=== PATIENT | male | born 2000 | race Caucasian/White ===

== ENCOUNTER 2021-12-17 14:54 | Emergency (ER) | payer OTHER, BC ==
[2021-12-17] MEDS ORDERED: BUPIVACAINE 0.25% PF 30 ML VIAL SUBQ STA (15:13)
[2021-12-17] MEDS ORDERED: KETOROLAC 15 MG/ML VIAL IVP STA (15:14)
[2021-12-17] MEDS ORDERED: ceFAZolin 1 GM in SODIUM CHLORIDE 0.9% MINIBAG 100 ML IV STA (15:14)
[2021-12-17] MEDS ORDERED: SODIUM CHLORIDE 0.9% 1,000 ML IV STA (15:15)
[2021-12-17] MEDS ORDERED: BUPIVACAINE 0.5% PF 10 ML VIAL ONE (15:22)
[2021-12-17] MEDS ORDERED: BUPIVACAINE 0.5% PF 10 ML VIAL SUBQ ONE (15:29)
--- NOTE | 2021-12-17 15:57 | XRAY Report ---
PROCEDURE: Finger(s) LT INDICATIONS: finger avulsive injury TECHNIQUE: AP hand, 3 views of the third finger(s) acquired. COMPARISON: None FINDINGS: Bones: There is partial amputation of the distal tuft of the third digit. No suspicious bony lesions. Soft tissues: No suspicious soft tissue calcifications. IMPRESSION: Amputation of the distal most aspect of the third digit tuft. Reviewed by: Veronica Gonzalez MD on 12/17/2021 3:56 PM PDT Approved by: Veronica Gonzalez MD on 12/17/2021 3:56 PM PDT Station ID: [id number]
--- NOTE | 2021-12-17 16:59 | ED Physician Documentation ---
PD HPI UPPER EXT INJURY - Stated complaint Stated Complaint: LT FINGER LAC - Chief complaint Chief Complaint: Trauma Ext - History obtained from History obtained from: Patient - History of Present Illness Location: Left, Finger (middle finger tip) Type of injury: Blunt / blow (working near small excavator and the bucket struck the tip of his middle finger, causing avulsion/lac of the skin at distal phalanx radial side.) Where injury occurred: Work Timing - onset: Today Timing - details: Abrupt onset, Still present Worsened by: Moving, Palpating Associated symptoms: No: Weakness, Numbness Similar symptoms before: Has not had sx before Review of Systems Skin: reports: Laceration (s) Neurologic: denies: Focal weakness, Numbness PD PAST MEDICAL HISTORY - Past Medical History Past Medical History: Yes Cardiovascular: None Respiratory: None Neuro: None Endocrine/Autoimmune: None GI: None : None HEENT: None Psych: Anxiety Musculoskeletal: None Derm: None - Past Surgical History Past Surgical History: No - Present Medications Home Medications: Ambulatory Orders Medication Instructions Recorded Confirmed Naproxen 500 mg PO BID #20 tab 12/17/21 Oxycodone HCl/Acetaminophen 1 each PO Q6H PRN #20 tablet 12/17/21 [Percocet 5-325 mg Tablet] Sertraline HCl 100 mg PO DAILY 12/17/21 12/17/21 cephALEXin [Keflex] 500 mg PO TID #20 cap 12/17/21 - Allergies Allergies/Adverse Reactions: Allergies Allergy/AdvReac Type Severity Reaction Status Date / Time No Known Drug Allergies Allergy Verified 12/17/21 15:13 - Social History Does the pt smoke?: No Smoking Status: Never smoker Does the pt drink ETOH?: No Does the pt have substance abuse?: No - Immunizations Immunizations are current?: Yes PD ED PE NORMAL - Vitals Vital signs reviewed: Yes - General General: Alert and oriented X 3, Well developed/nourished, Other (appears in pain due to finger injury. Finger bandaged. Light bleeding through bandage. ) - Derm Derm: Normal color, Warm and dry - Extremities Extremities: Other (left middle finger with avulsion torn at distal phalanx with radial side missing to just distal to DIP. Ulnar side with intact tissue almost to tip of where nail would be. The bone otherwise is exposed out from tissue and surface appears scoured. No overt dirt. He can flex the stub of it at the DIP.) - Neuro Neuro: Alert and oriented X 3, No motor deficit, No sensory deficit Results - Vitals Vitals: Vital Signs - 24 hr 12/17/21 12/17/21 15:08 17:36 Temperature 36.4 C L 37.3 C Heart Rate 64 92 Respiratory 16 16 Rate Blood Pressure 138/75 H 143/60 H O2 Saturation 99 98 Oxygen O2 Source Room air - Rads (name of study) left finger Radiology: Prelim report reviewed (avulsion of soft tissue and distal phalanx bone segment. Not involving DIP joint. ), See rad report Procedures - Laceration (location) left middle finger tip Length in cm: 3 Wound type: Irregular, Into subcut fat (exposing the bone), Clean Neurovascular status: Sensory intact, Motor intact Tendon involvement: Tendon intact Anesthesia: Marcaine 0.5% (digital block) Wound preparation: Irrigated copiously NS, Wound explored, To the base Deep layer closure: Vicryl (single suture to ligate distal digital arteriole that started bleeding.) Skin layer closure: Nylon, Interrupted (bone ronjour of the exposed distal phalanx and freed up the tissue remaining on ulnar side. Folded it over to radial side and sutured around the tip. There was some subcut tissue still exposed without dermal overcoat on radial side, but bone completely covered.), Size #-0 - enter number (4) Other: Patient tolerated well, No complications, Neurovascular intact, Dressing applied, Tetanus UTD PD MEDICAL DECISION MAKING - ED course Complexity details: reviewed results, d/w insolvency consultant (plastic surgeon in [place] (pt seen prior for hand injury and pt lives in [place]). Discussed exam. He directed to roungour back the bone and oversew skin to maximize remaining length. To be seen by them in a week. ) Departure - Departure Disposition: 01 Home, Self Care Clinical Impression: Avulsion, finger tip Condition: Stable Record reviewed to determine appropriate education?: Yes Instructions: ED Laceration Hand Follow-Up: Reji Villanueva II, MD [Physician No Access] - Prescriptions: cephALEXin [Keflex] 500 mg PO TID #20 cap Naproxen 500 mg PO BID #20 tab Oxycodone HCl/Acetaminophen [Percocet 5-325 mg Tablet] 1 each PO Q6H PRN #20 tablet PRN Reason: pain Comments: Leave the initial dressing on for 1 to 2 days. Then remove and clean the wound gently with soap and water and apply some ointment and redress. Antibiotic cephalexin as directed for the next week. Use naproxen anti- inflammatory twice daily as directed. Take it with food. To that add Tylenol every 4-6 hours if needed for pain or oxycodone/acetaminophen if needed for worse pain. I transmitted your prescriptions to the [facility] on [place]. I talked with Dr. Smith who is with the plastic surgery group. Use before. He said to call their office tomorrow for an appointment to make a follow-up in about a week. Recheck sooner if any signs of infection. I tried to maintain the length as best I could and still approximate the tissue. It may need further revising subsequently by the hand specialist. I am prescribing a short course of narcotic pain medication for you. These are potentially dangerous and addictive medications that should be used carefully. These medications may constipate you. Take an [id number] stool softener such as docusate twice daily with plenty of water while taking these medications. If you go 24 hours without a bowel movement, take [id number] MiraLAX, per package instructions. Do not drink or drive while taking these medications. If you received narcotic or sedating medications while in the emergency department do not drive for 24 hours. Store this medication in a safe, secure place and out of reach of children. It is a violation of federal law to give or sell this medication to another person or to use in a manner other than prescribed. The ED will not refill narcotic prescriptions, including prescriptions lost or stolen. You can dispose of unwanted medications at the [facility]'s office or at several pharmacies such as [facility]. Discharge Date/Time: 12/17/21 17:37
[2021-12-17 17:37] VITALS: BP 143/60
== END 2021-12-17 17:37 | disposition home or self-care (01) ==
LOC: ED 14:54
DX: S48.912A Complete traumatic amputation of left shoulder and upper arm, level unspecified, initial encounter (principal); W31.89XA Contact with other specified machinery, initial encounter; Y93.89 Activity, other specified; Y99.0 Civilian activity done for income or pay
CPT/HCPCS: 13132

== ENCOUNTER 2021-12-21 10:02 | Emergency (ER) | payer BC ==
[2021-12-21 10:13] VITALS: BP 127/67
--- NOTE | 2021-12-21 10:15 | ED Physician Documentation ---
PD HPI WOUND RECHECK - Stated complaint Stated Complaint: DRESSING R HAND FINGER - Chief complaint Chief Complaint: Wound - Histroy obtained from History obtained from: Patient - History of Present Illness Location: Right Hand (had crush avulsion of end of middle finger with repair and closure in ER. Was to see plastic surgeon in follow up but the office personnel said he needed referral to be seen. I will call office again today. I had talked with surgeon directly last week. Wound is doing okay without infection.) Timing - onset: How many days ago (6) Associated symptoms: No: Redness, Swelling, Drainage Similar symptoms before: Other (had seen Plastic Surgeon in [place] for prior hand injury within past couple of years.) Recently seen: Emergency Dept. No: Clinic Review of Systems Constitutional: denies: Fever, Chills GI: denies: Nausea, Vomiting : denies: Hematuria, Discharge PD PAST MEDICAL HISTORY - Past Medical History Cardiovascular: None Respiratory: None Neuro: None Endocrine/Autoimmune: None GI: None : None HEENT: None Psych: Anxiety Musculoskeletal: None Derm: None - Past Surgical History Past Surgical History: No - Present Medications Home Medications: Ambulatory Orders Medication Instructions Recorded Confirmed Naproxen 500 mg PO BID #20 tab 12/17/21 Oxycodone HCl/Acetaminophen 1 each PO Q6H PRN #20 tablet 12/17/21 [Percocet 5-325 mg Tablet] Sertraline HCl 100 mg PO DAILY 12/17/21 12/17/21 cephALEXin [Keflex] 500 mg PO TID #20 cap 12/17/21 - Allergies Allergies/Adverse Reactions: Allergies Allergy/AdvReac Type Severity Reaction Status Date / Time No Known Drug Allergies Allergy Verified 12/21/21 10:13 - Social History Does the pt smoke?: No Smoking Status: Never smoker Does the pt drink ETOH?: No Does the pt have substance abuse?: No - Immunizations Immunizations are current?: Yes PD ED PE NORMAL - Vitals Vital signs reviewed: Yes - General General: Alert and oriented X 3, No acute distress, Well developed/nourished - Extremities Extremities: Other (middle finger distally with closed wound with granulation tissue starting at edge. No purulence, drainage. ) - Neuro Neuro: No motor deficit, No sensory deficit Results - Vitals Vitals: Oxygen O2 Source Room air PD MEDICAL DECISION MAKING - ED course Complexity details: considered differential (wound check with healing wound so far. ), d/w patient, other (I called the Plastic Surgery office again and they do not have hours on Friday. Left [facility]) Departure - Departure Disposition: 01 Home, Self Care Clinical Impression: Encounter for wound re-check Condition: Stable Record reviewed to determine appropriate education?: Yes Comments: Your wound appears about what you would expect it to look like at this point in healing. No signs of infection. Continue cleaning daily or twice daily with soap and water gently. Lightly apply some ointment once daily. Dressings to keep it covered. Continue with your current medication for pain and finish out the antibiotics. I will try to talk with the plastic surgery/hand surgery office when they call back today. Their office is closed today but I am assuming I will get a call back. Otherwise following up wound care with even a walk-in clinic and your home [place] area could be appropriate as well in the interim. Perhaps more locally, a walk-in clinic there might be able to connect you with orthopedics or the hand surgery group as a referral more directly. Discharge Date/Time: 12/21/21 11:17
[2021-12-21] MEDS ORDERED: MUPIROCIN 2% OINT 1 GM TOP STA (10:34)
== END 2021-12-21 11:17 | disposition home or self-care (01) ==
LOC: ED 10:02
DX: S61.212A Laceration without foreign body of right middle finger without damage to nail, initial encounter (principal); X58.XXXA Exposure to other specified factors, initial encounter; Z48.00 Encounter for change or removal of nonsurgical wound dressing
CPT/HCPCS: 99281; 99282; A9270